=== PATIENT | female | born 1975 | race Caucasian/White ===

== ENCOUNTER 2016-09-20 16:47 | Emergency (ER) | payer OTHER ==
[~2016-09-20] VITALS: Wt 71.7 kg
[~2016-09-20 16:47] MED LIST: AMOXICILLIN500 M2 PO; ASPIRIN81 M1 PO; BACTRIM DS 8001 TA1 PO; BACTROBAN OINT22 GM PO; CEFUROXIME AXE250 MG PO; CIPRO250 MG PO; CIPROFLOXACIN500 MG PO; CLINDAMYCIN HC300 MG PO; DIFLUCAN150 MG PO; DONNATAL1 TAB PO; FLAGYL500 MG PO; FLUCONAZOLE100 MG PO; HYDROCODONE BIT1 T11 PO; PYRIDIUM200 M1 PO; PYRIDIUM200 MG PO; TYLENOL W/CODEI1 TA2 PO; VICO10300 PO; VICODIN 5/500 505 MG PO; ZANTAC150 MG PO; ZOFRAN4 MG PO
[2016-09-20 16:52] VITALS: BP 139/86
[2016-09-20 17:09] LABS: BILIRUBIN NEGATIVE (NEGATIVE); BLOOD 2+ (NEGATIVE); CLARITY SL CLOUDY (CLEAR); COLOR YELLOW (YELLOW); GLUCOSE NEGATIVE (NEGATIVE); KETONE TRACE (NEGATIVE); LEUKO ESTERASE 2+ (NEGATIVE); NITRITE NEGATIVE (NEGATIVE); PH 5.5 (5.0-9.0); PROTEIN NEGATIVE (NEGATIVE); SPECIFIC GRAVITY >= 1.030 (1.005-1.030); UROBILINOGEN 0.2 E.U./dl (0.2-1.0)
[2016-09-20 17:21] LABS: BACTERIA 2+; EPITHELIAL CELLS TNTC
[2016-09-20 17:22] LABS: URINE REFLEX COMMENT YES (NO); WBC 51-100 wbc/hpf (0-5)
[2016-09-20] MEDS ORDERED: DIFLUCAN150 MG PO ×2 (17:37→18:15)
[2016-09-20] MEDS ORDERED: CIPRO250 MG PO ×2 (17:37→18:15)
[2016-09-20] MEDS ORDERED: PYRIDIUM200 M1 PO ×2 (17:37→18:15)
== END 2016-09-20 17:53 | disposition home or self-care (01) ==
LOC: ED 16:47
PROVIDERS: Nurse Practitioner Family
DX: N39.0 Urinary tract infection, site not specified (principal); F17.200 Nicotine dependence, unspecified, uncomplicated; Z98.890 Other specified postprocedural states; Z88.5 Allergy status to narcotic agent; Z88.2 Allergy status to sulfonamides; Z88.1 Allergy status to other antibiotic agents

== ENCOUNTER 2017-06-12 12:17 | Emergency (ER) | payer OTHER ==
[~2017-06-12] VITALS: Wt 80.7 kg
[2017-06-12 12:20] VITALS: BP 123/78
[2017-06-12 13:51] LABS: BASO % 0.5 % (0.0-1.0); EOS # 0.3 10*3/uL (0.0-0.4); HEMATOCRIT 42.8 % (37.0-47.0); HEMOGLOBIN 14.2 g/dl (12.0-16.0); LYMPH # 2.9 10*3/uL (1.3-4.4); LYMPH % 36.7 % (27.0-41.0); MEAN CELL VOLUME 89.7 fl (81.0-99.0); MEAN CORPUSCULAR HGB 29.8 pg (27.0-31.0); MEAN CORPUSCULAR HGB CONC 33.2 g/dl (33.0-37.0); MEAN PLATELET VOLUME 10.2 fl (9.6-12.3); MONO # 0.5 10*3/uL (0.1-1.0); MONO % 5.8 % (3.0-9.0); NEUT # 4.1 10*3/uL (2.3-7.9); NEUT % 52.9 % (47.0-73.0); PLATELET COUNT AUTOMATED 270 10*3/uL (130-400); RED BLOOD COUNT 4.77 10*6/uL (4.10-5.10); RED CELL DISTRI WIDTH 12.1 % (0-14.5); WHITE BLOOD COUNT 7.8 10*3/uL (4.8-10.8)
[2017-06-12 14:05] LABS: ALBUMIN 4.1 gm/dl (3.1-4.5); ALKALINE PHOSPHATASE 66 U/L (45-117); BUN 13 mg/dl (7-24); CHLORIDE 106 mmol/L (98-107); CREATININE 0.71 mg/dL (0.55-1.02); POTASSIUM 3.8 mmol/L (3.5-5.1); SGOT/AST 17 IU/L (3-35); SGPT/ALT 24 U/L (12-78); SODIUM 140 mmol/L (136-145); TOTAL PROTEIN 7.4 gm/dL (6.4-8.2)
[2017-06-12] MEDS ORDERED: CHLORZOXAZONE500 M2 PO (14:21)
== END 2017-06-12 14:47 | disposition home or self-care (01) ==
LOC: ED 12:17
PROVIDERS: Nurse Practitioner Family
DX: M79.662 Pain in left lower leg (principal); D68.51 Activated protein C resistance; Z88.2 Allergy status to sulfonamides; Z88.1 Allergy status to other antibiotic agents; Z88.6 Allergy status to analgesic agent; Z88.5 Allergy status to narcotic agent; Z91.018 Allergy to other foods

== ENCOUNTER 2019-04-03 04:45 | Emergency (ER) | payer OTHER ==
[~2019-04-03] VITALS: Ht 160 cm; Wt 77.1 kg
[~2019-04-03 04:45] MED LIST changes: +CHLORZOXAZONE500 M2 PO; +CIPRO500 MG PO; +KEFLEX500 M1 PO
[2019-04-03 04:50] VITALS: BP 116/75
[2019-04-03 06:31] LABS: BILIRUBIN NEGATIVE (NEGATIVE); BLOOD 3+ (NEGATIVE); CLARITY CLOUDY (CLEAR); COLOR YELLOW (YELLOW); GLUCOSE NEGATIVE (NEGATIVE); KETONE NEGATIVE (NEGATIVE); LEUKO ESTERASE 1+ (NEGATIVE); NITRITE NEGATIVE (NEGATIVE); PH 5.5 (5.0-9.0); RBC TNTC rbc/hpf (0-2); UROBILINOGEN 0.2 E.U./dl (0.2-1.0)
[2019-04-03 06:32] LABS: BACTERIA 3+; WBC 51-100 wbc/hpf (0-5)
[2019-04-03] MEDS ORDERED: MACROBID100 M1 PO (06:40)
== END 2019-04-03 06:50 | disposition home or self-care (01) ==
LOC: ED 04:45
PROVIDERS: Emergency Medicine
DX: N39.0 Urinary tract infection, site not specified (principal); Z88.2 Allergy status to sulfonamides; Z88.1 Allergy status to other antibiotic agents; Z88.6 Allergy status to analgesic agent; Z88.8 Allergy status to other drugs, medicaments and biological substances; Z91.018 Allergy to other foods

== ENCOUNTER 2019-12-17 18:33 | Emergency (ER) | payer OTHER ==
[~2019-12-17] VITALS: Wt 79.4 kg
[~2019-12-17 18:33] MED LIST changes: +MACROBID100 M1 PO
[2019-12-17 18:39] VITALS: BP 134/78
[2019-12-17] MEDS ORDERED: CEPHALEXIN500 M1 PO (19:08)
[2019-12-17] MEDS ORDERED: DIFLUCAN150 MG PO (19:08)
== END 2019-12-17 20:19 | disposition home or self-care (01) ==
LOC: ED 18:33
DX: L03.113 Cellulitis of right upper limb (principal); Z88.2 Allergy status to sulfonamides; Z88.1 Allergy status to other antibiotic agents; Z88.6 Allergy status to analgesic agent; Z91.018 Allergy to other foods

== ENCOUNTER 2021-12-16 07:18 | Emergency (ER) | payer OTHER ==
[~2021-12-16] VITALS: Ht 160 cm; Wt 86.2 kg
[~2021-12-16 07:18] MED LIST changes: +CEPHALEXIN500 M1 PO
[2021-12-16 07:22] VITALS: BP 134/75
[2021-12-16] MEDS ORDERED: Motrin,Rufen800 MG PO (12:57)
[2021-12-16] MEDS ORDERED: HYDROCODONE-AC1 EAC1 PO (12:57)
== END 2021-12-16 13:00 | disposition home or self-care (01) ==
LOC: ED 07:18
DX: S20.211A Contusion of right front wall of thorax, initial encounter (principal); S80.211A Abrasion, right knee, initial encounter; Z88.2 Allergy status to sulfonamides; Z88.6 Allergy status to analgesic agent; Z88.5 Allergy status to narcotic agent; V49.88XA Car occupant (driver) (passenger) injured in other specified transport accidents, initial encounter; Y93.89 Activity, other specified; Y92.413 State road as the place of occurrence of the external cause; Y99.9 Unspecified external cause status

== ENCOUNTER 2021-12-29 16:32 | Emergency (ER) | payer BC ==
[~2021-12-29] VITALS: Ht 160 cm; Wt 86.2 kg
[~2021-12-29 16:32] MED LIST changes: +HYDROCODONE-AC1 EAC1 PO; +Motrin,Rufen800 MG PO
[2021-12-29 16:58] VITALS: BP 146/91
[2021-12-29] MEDS ORDERED: LIDODERM1 EACH T (18:39)
[2021-12-29] MEDS ORDERED: RELAFEN500 M1 PO (18:39)
[2021-12-29] MEDS ORDERED: Percocet 325 MG1 TAB PO (18:39)
[2021-12-29] MEDS ORDERED: HYDROCODONE-AC1 EAC1 PO (18:57)
== END 2021-12-29 18:43 | disposition home or self-care (01) ==
LOC: ED 16:32
DX: M25.511 Pain in right shoulder (principal); Z88.2 Allergy status to sulfonamides; Z88.1 Allergy status to other antibiotic agents; Z88.8 Allergy status to other drugs, medicaments and biological substances; Z91.018 Allergy to other foods